=== PATIENT | female | born 1950 | race Caucasian/White ===

== ENCOUNTER 2018-07-31 13:59 | Outpatient (CLI) | payer MEDICARE, OTHER ==
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
== END 2018-07-31 14:00 | disposition home or self-care (01) ==
LOC: BICRAD 13:59
PROVIDERS: ATTEND Podiatrist
DX: M79.89 Other specified soft tissue disorders (principal); M25.572 Pain in left ankle and joints of left foot; M19.072 Primary osteoarthritis, left ankle and foot

== ENCOUNTER 2018-11-26 10:36 | Outpatient (CLI) | payer MEDICARE, OTHER ==
--- NOTE | 2018-11-26 13:19 | BD ---
DEXA BONE MINERAL DENSITY STUDY: HISTORY: Osteoporosis screening. Postmenopausal female. COMPARISON: None. FINDINGS: Lumbar Spine: BMD (g/cm2) L1 1.319 T-Score: 3.0 4.9 L2 1.784 T-Score: 6.9 9.0 L3 1.526 T-Score: 4.0 6.2 L4 1.750 T-Score: 6.3 8.5 L1-L4 1.589 T-Score: 4.9 7.1 WHO classification is normal. Femoral Neck: 0.875 T-Score: 0.2 2.1 Total Femur: 1.136 T-Score: 1.6 3.1 WHO classification is normal. Impression: Normal bone mineral density. The lumbar spine bone mineral density is spuriously elevated due to ext ensive degenerative changes. POS: HENRY
== END 2018-11-26 10:37 | disposition home or self-care (01) ==
LOC: BICMAMMO 10:36
PROVIDERS: ATTEND Internal Medicine Rheumatology
DX: M81.0 Age-related osteoporosis without current pathological fracture (principal); M47.816 Spondylosis without myelopathy or radiculopathy, lumbar region
CPT/HCPCS: 77080

== ENCOUNTER 2019-05-26 14:32 | Emergency (ER) | payer MEDICARE, OTHER ==
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
[2019-05-26] MEDS ORDERED: traMADol HCl 50 MG TAB ONE (16:06)
== END 2019-05-26 16:14 | disposition home or self-care (01) ==
LOC: ERS 14:32
DX: S16.1XXA Strain of muscle, fascia and tendon at neck level, initial encounter (principal); M54.5 Low back pain; I10 Essential (primary) hypertension; F32.9 Major depressive disorder, single episode, unspecified; Z79.899 Other long term (current) drug therapy; Z79.82 Long term (current) use of aspirin; V43.52XA Car driver injured in collision with other type car in traffic accident, initial encounter
CPT/HCPCS: 72070; 72125; 72128; 72131

== ENCOUNTER 2022-10-11 12:16 | Outpatient (CLI) | payer MEDICARE, OTHER | END 2022-10-11 12:17 | disposition home or self-care (01) | LOC: TBSIIMAG 12:16 | PROVIDERS: ATTEND Orthopaedic Surgery | DX: M48.00 Spinal stenosis, site unspecified (principal); M47.816 Spondylosis without myelopathy or radiculopathy, lumbar region; M47.814 Spondylosis without myelopathy or radiculopathy, thoracic region; M51.36 Other intervertebral disc degeneration, lumbar region; M51.37 Other intervertebral disc degeneration, lumbosacral region | CPT/HCPCS: 72148 ==

== ENCOUNTER 2023-02-20 09:26 | Outpatient (CLI) | payer MEDICARE, OTHER | END 2023-02-20 09:27 | disposition home or self-care (01) | LOC: TBSIIMAG 09:26 | PROVIDERS: ATTEND Surgery | DX: M48.04 Spinal stenosis, thoracic region (principal); M51.34 Other intervertebral disc degeneration, thoracic region; G95.89 Other specified diseases of spinal cord | CPT/HCPCS: 72146 ==

== ENCOUNTER 2023-04-03 14:41 | Outpatient (CLI) | payer MEDICARE, OTHER | END 2023-04-03 14:42 | disposition home or self-care (01) | LOC: BICCT 14:41 | PROVIDERS: ATTEND Surgery | DX: M48.02 Spinal stenosis, cervical region (principal); M47.812 Spondylosis without myelopathy or radiculopathy, cervical region; M48.03 Spinal stenosis, cervicothoracic region | CPT/HCPCS: 72125 ==

== ENCOUNTER 2023-04-07 15:30 | Inpatient (IN) | payer MEDICARE, OTHER ==
[2023-04-07 15:28] VITALS: BMI 38.2
[2023-04-11] MEDS ORDERED: Vancomycin 1 GM VIAL ONE (06:40)
[2023-04-11] MEDS ORDERED: Thrombin 5000 UNITS/5 ML VIAL ONE (06:40)
[2023-04-11] MEDS ORDERED: Famotidine/PF 20 mg/2ml Vial ONE (06:44)
[2023-04-11] MEDS ORDERED: Bacitracin Zinc Ointment 30 gm TUBE ONE (06:53)
[2023-04-11] MEDS ORDERED: Sodium Chloride 0.9% 100 ML ONE (07:21)
[2023-04-11] MEDS ORDERED: CEFAZOLIN 2 GM VIAL ONE (07:21)
[2023-04-11] MEDS ORDERED: Vasopressin 20 UNITS/ML VIAL ONE (07:25)
[2023-04-11] MEDS ORDERED: Sevoflurane 250 ML INH ANEST BOTTLE ONE (07:25)
[2023-04-11] MEDS ORDERED: Dexmedetomidine 200 MCG/2 ML VIAL ONE (07:25)
[2023-04-11] MEDS ORDERED: Phenylephrine 10 MG/ML VIAL ONE (07:25)
[2023-04-11] MEDS ORDERED: fentaNYL 50 mcg/mL 1 mL Vial ONE (07:35)
[2023-04-11] MEDS ORDERED: Midazolam HCl 2 mg/2 ml Vial ONE (07:36)
[2023-04-11] MEDS ORDERED: fentaNYL 50 mcg/mL 1 mL Vial SLOW IVP PRN (07:41)
[2023-04-11] MEDS ORDERED: Promethazine HCl 25 MG/ML VIAL IVPB PRN (07:41)
[2023-04-11] MEDS ORDERED: traMADol HCl 50 MG TAB PO PRN (07:41)
[2023-04-11] MEDS ORDERED: HYDROcodone/Acetaminophen 10/325 mg Tablet PO PRN (07:41)
[2023-04-11] MEDS ORDERED: HYDROcodone/Acetaminophen 7.5/325 mg Tablet PO PRN (07:41)
[2023-04-11] MEDS ORDERED: Diazepam 5 MG TAB PO PRN (07:44)
[2023-04-11] MEDS ORDERED: Mineral Oil ENEMA PR PRN (07:44)
[2023-04-11] MEDS ORDERED: Bisacodyl 10 MG SUPP PR PRN (07:44)
[2023-04-11] MEDS ORDERED: Phenol 118 ML BOT PO PRN (07:44)
[2023-04-11] MEDS ORDERED: Bisacodyl 5 MG TAB PO PRN (07:44)
[2023-04-11] MEDS ORDERED: Ketamine 50 MG/ML (10ML VIAL) ONE (07:45)
[2023-04-11] MEDS ORDERED: Benzocaine/Menthol 1 LOZ LOZ PO PRN (07:46)
[2023-04-11] MEDS ORDERED: Polyethylene Glycol 3350 17 GM Packet PO PRN (07:48)
[2023-04-11] MEDS ORDERED: Lidocaine 1% PF 5 ML VIAL ONE (07:56)
[2023-04-11] MEDS ORDERED: Labetalol HCl 100 MG/20 ML VIAL ONE (07:56)
[2023-04-11] MEDS ORDERED: Ondansetron PF 4 MG/2 ML Vial ONE (07:56)
[2023-04-11] MEDS ORDERED: Esmolol 100 MG/10 ML VIAL ONE (07:56)
[2023-04-11] MEDS ORDERED: ePHEDrine Sulfate 50 MG/10 ML VIAL ONE (07:56)
[2023-04-11] MEDS ORDERED: PHENYLEPHRINE-NS 100 MCG/ML 10 ML SYRINGE ONE (07:56)
[2023-04-11] MEDS ORDERED: PROPOFOL 200 MG/20 ML VIAL ONE (07:56)
[2023-04-11] MEDS ORDERED: Dexamethasone 20 MG/5 ML VIAL ONE (07:56)
[2023-04-11] MEDS ORDERED: Rocuronium Bromide 10 MG/ML (10ML VIAL) ONE (07:56)
[2023-04-11] MEDS ORDERED: MINERAL OIL/WHITE PETROLATUM 3.5 GM TUBE ONE (08:57)
[2023-04-11] MEDS ORDERED: HYDROmorphone 2 MG/ML VIAL ONE ×2 (08:58→11:33)
[2023-04-11] MEDS ORDERED: Ondansetron HCl/PF 4 MG/2 ML Vial IVP PRN (10:19)
[2023-04-11] MEDS ORDERED: HYDROmorphone 2 MG/ML VIAL SLOW IVP PRN (10:19)
[2023-04-11] MEDS ORDERED: Promethazine HCl 25 MG/ML VIAL IM PRN ×2 (10:19→14:28)
[2023-04-11] MEDS ORDERED: Meperidine HCl/PF 25 MG/ML VIAL SLOW IVP PRN (10:19)
[2023-04-11] MEDS ORDERED: Rocuronium Bromide 50 MG/5 ML VIAL ONE (11:25)
[2023-04-11] MEDS ORDERED: SUGAMMADEX SODIUM 200 MG/2 ML VIAL ONE (12:37)
[2023-04-11] MEDS ORDERED: Naloxone HCl 0.4 mg/ml Vial IV PRN (14:28)
[2023-04-11] MEDS ORDERED: Ondansetron PF 4 MG/2 ML Vial IVP PRN (14:28)
[2023-04-11] MEDS ORDERED: diphenhydrAMINE 25 MG CAP PO PRN (14:28)
[2023-04-11] MEDS ORDERED: FENTANYL 500 MCG/10 ML VIAL 2,000 MCG in Sodium Chloride 0.9% 60 ML IV PRN (14:28)
[2023-04-11] MEDS ORDERED: Zolpidem Tartrate 5 MG TAB PO PRN (14:28)
[2023-04-11] MEDS ORDERED: diphenhydrAMINE 50 MG/ML VIAL IM PRN (14:28)
[2023-04-11] MEDS ORDERED: diphenhydrAMINE 50 MG/ML VIAL IVP PRN (14:28)
[2023-04-11] MEDS ORDERED: Communication Order-Pharmacy FS SCH (14:30)
[2023-04-11] MEDS: Sodium Chloride 0.9% 1,000 ML IV SCH ×2 (16:00→21:55)
[2023-04-11] MEDS ORDERED: hydrALAZINE 20 MG/ML VIAL ONE (16:53)
[2023-04-11] MEDS: hydrALAZINE 20 MG/ML VIAL SLOW IVP PRN ×2 (16:55→22:47)
[2023-04-11] MEDS: Docusate 100 MG CAP PO SCH ×2 (18:18→20:17)
[2023-04-11] MEDS: CEFAZOLIN 2 GM in Sodium Chloride 0.9% 100 ML IVPB SCH ×2 (18:19→21:51)
[2023-04-12] MEDS: Sodium Chloride 0.9% 1,000 ML IV SCH ×2 (05:24→08:59)
[2023-04-12] MEDS: CEFAZOLIN 2 GM in Sodium Chloride 0.9% 100 ML IVPB SCH ×3 (05:25→20:46)
[2023-04-12] MEDS: Docusate 100 MG CAP PO SCH ×2 (08:59→20:33)
[2023-04-12 09:07] LABS: #Monocytes 0.9 thou/uL (0.11-0.59); %Basophils 0.3 % (0.0-1.0); %Eosinophils 0.1 % (0.0-10.0); %Monocytes 8.7 % (0.0-10.0); %Neutrophils 81.4 % (42.0-75.0); Hemoglobin 10.3 g/dL (12.0-16.0); Mean Corpuscular HGB CONC 31.4 g/dL (32.0-36.0); Mean Corpuscular Hemoglobin 28.3 pg (27.0-31.0); Mean Corpuscular Volume 90.1 fl (78.0-98.0); Mean Platelet Volume 8.7 fL (7.4-10.4); Platelet Count 259 10x3/uL (130-400); RBC Distribution Width 14.9 % (11.5-14.5); Red Blood Cell (RBC) Count 3.64 mill/uL (4.20-5.40); White Blood Cell (WBC) Count 9.8 10x3/uL (4.8-10.8)
[2023-04-12 09:28] LABS: Anion Gap 15 mmol/L (10-20); BUN (Urea Nitrogen) 17 mg/dL (9.8-20.1); Calc. Creatinine Clearance 88 mL/min (70-130); Calcium 8.8 mg/dL (7.8-10.44); Carbon Dioxide 23 mmol/L (23-31); Chloride 106 mmol/L (98-107); Estimated GFR 65; Glucose 113 mg/dL (83-110); Potassium 4.5 mmol/L (3.5-5.1); Sodium 139 mmol/L (136-145)
[2023-04-12] MEDS ORDERED: traMADol HCl 50 MG TAB PO SCH ×2 (09:45→15:00)
[2023-04-12] MEDS ORDERED: Cyclobenzaprine 10 MG TAB PO PRN (15:19)
[2023-04-12] MEDS ORDERED: HYDROcodone/Acetaminophen 5/325 mg Tablet PO PRN (15:59)
[2023-04-12] MEDS ORDERED: Diazepam 5 MG TAB PO SCH (16:00)
[2023-04-12] MEDS: Dexamethasone 4 MG TAB PO SCH ×2 (17:26→20:35)
[2023-04-12] MEDS: Ketorolac Tromethamine 30 MG/ML VIAL IVP SCH ×2 (17:27→20:35)
[2023-04-12] MEDS: cloNIDine 0.1 MG TAB PO SCH (20:33)
[2023-04-12] MEDS: Escitalopram Oxalate 20 mg Tablet PO SCH (20:34)
[2023-04-12] MEDS: Acetaminophen 325 MG TAB PO PRN (20:38)
[2023-04-12] MEDS: Diazepam 5 MG TAB PO PRN (20:41)
[2023-04-12] MEDS: traMADol HCl 50 MG TAB PO PRN (20:42)
[2023-04-12] MEDS: traZODone HCl 50 MG TAB PO PRN (20:46)
[2023-04-13] MEDS: Sodium Chloride 0.9% 1,000 ML IV SCH ×2 (01:42→12:15)
[2023-04-13] MEDS: Temazepam 15 MG CAP PO PRN (02:01)
[2023-04-13] MEDS: Ketorolac Tromethamine 30 MG/ML VIAL IVP SCH (04:59)
[2023-04-13] MEDS: Dexamethasone 4 MG TAB PO SCH ×3 (04:59→15:55)
[2023-04-13] MEDS: traMADol HCl 50 MG TAB PO PRN ×2 (05:08→21:00)
[2023-04-13] MEDS: Acetaminophen 325 MG TAB PO PRN (05:08)
[2023-04-13] MEDS: CEFAZOLIN 2 GM in Sodium Chloride 0.9% 100 ML IVPB SCH ×2 (05:08→14:47)
[2023-04-13] MEDS ORDERED: Cyclobenzaprine 10 MG TAB PO PRN (05:24)
[2023-04-13] MEDS: Levothyroxine Sodium 100 MCG TAB PO SCH (06:23)
[2023-04-13 06:56] LABS: Anion Gap 14 mmol/L (10-20); BUN (Urea Nitrogen) 16 mg/dL (9.8-20.1); Calc. Creatinine Clearance 94 mL/min (70-130); Calcium 9.1 mg/dL (7.8-10.44); Carbon Dioxide 22 mmol/L (23-31); Chloride 106 mmol/L (98-107); Estimated GFR 71; Glucose 123 mg/dL (83-110); Potassium 4.4 mmol/L (3.5-5.1); Sodium 138 mmol/L (136-145)
[2023-04-13] MEDS ORDERED: Morphine 2 MG/ML VIAL SLOW IVP PRN (07:43)
[2023-04-13] MEDS: cloNIDine 0.1 MG TAB PO SCH ×2 (08:45→20:46)
[2023-04-13] MEDS: Metoprolol Tartrate 50 MG TAB PO SCH (08:45)
[2023-04-13] MEDS: Docusate 100 MG CAP PO SCH ×2 (08:45→20:47)
[2023-04-13] MEDS: Diazepam 5 MG TAB PO PRN (11:15)
[2023-04-13] MEDS: Ketorolac Tromethamine 30 MG/ML VIAL IVP PRN (15:59)
[2023-04-13] MEDS: Escitalopram Oxalate 20 mg Tablet PO SCH (20:47)
[2023-04-13] MEDS: traZODone HCl 50 MG TAB PO PRN (22:04)
[2023-04-14] MEDS: Dexamethasone 4 MG TAB PO SCH ×3 (00:36→08:28)
[2023-04-14] MEDS: CEFAZOLIN 2 GM in Sodium Chloride 0.9% 100 ML IVPB SCH ×4 (00:36→22:14)
[2023-04-14] MEDS: Sodium Chloride 0.9% 1,000 ML IV SCH ×2 (02:43→14:46)
[2023-04-14] MEDS: Levothyroxine Sodium 100 MCG TAB PO SCH (05:01)
[2023-04-14] MEDS: Ketorolac Tromethamine 30 MG/ML VIAL IVP PRN (08:26)
[2023-04-14] MEDS: Docusate 100 MG CAP PO SCH ×2 (08:27→21:03)
[2023-04-14] MEDS: Metoprolol Tartrate 50 MG TAB PO SCH (08:27)
[2023-04-14] MEDS: cloNIDine 0.1 MG TAB PO SCH ×2 (08:28→21:03)
[2023-04-14] MEDS: traMADol HCl 50 MG TAB PO PRN ×2 (08:31→21:03)
[2023-04-14] MEDS: Diazepam 5 MG TAB PO PRN (13:56)
[2023-04-14] MEDS: Dexamethasone 1 MG TAB PO SCH ×2 (15:05→22:14)
[2023-04-14] MEDS: traZODone HCl 50 MG TAB PO PRN (21:03)
[2023-04-14] MEDS: Temazepam 15 MG CAP PO PRN (21:04)
[2023-04-14] MEDS: Escitalopram Oxalate 20 mg Tablet PO SCH (21:04)
[2023-04-15] MEDS: Dexamethasone 1 MG TAB PO SCH ×3 (04:14→16:36)
[2023-04-15] MEDS: traMADol HCl 50 MG TAB PO PRN ×2 (04:16→13:48)
[2023-04-15] MEDS: Sodium Chloride 0.9% 1,000 ML IV SCH (04:21)
[2023-04-15] MEDS: CEFAZOLIN 2 GM in Sodium Chloride 0.9% 100 ML IVPB SCH ×2 (05:35→13:14)
[2023-04-15] MEDS: Levothyroxine Sodium 100 MCG TAB PO SCH (05:37)
[2023-04-15] MEDS: Docusate 100 MG CAP PO SCH (09:05)
[2023-04-15] MEDS: Metoprolol Tartrate 50 MG TAB PO SCH (09:07)
[2023-04-15] MEDS: cloNIDine 0.1 MG TAB PO SCH (09:07)
[2023-04-15] MEDS: HYDROcodone/Acetaminophen 10/325 mg Tablet PO PRN ×2 (09:07→16:35)
[2023-04-15] MEDS: hydrALAZINE 20 MG/ML VIAL SLOW IVP PRN (13:48)
[2023-04-15 16:07] VITALS: BP 153/73; TEMP 97.7
[2023-04-16] MEDS ORDERED: Dexamethasone 1 MG TAB PO SCH (16:00)
[2023-04-18 11:29] LABS: Actual Bicarbonate (HCO3a) 22.1 mEq/L (22-28); Analyzer IN Cardio OR; Base Excess (BEa) -3.3 mEq/L (-2.0 to +3.0); CO2 Tension 41.2 mmHg (35.0-45.0); Calcium, Ionized (arterial) 1.13 mmol/L (1.12-1.30); Carboxyhemoglobin (COHb) 0.3 gm% (0.0-3.0); Hematocrit-ABG 32 % (36.0-47.0); O2 Tension (PaO2), arterial 203.4 mmHg (> 70.0); Potassium - ABG Lab 4.17 mmol/L (3.70-5.30); Puncture Site Arterial Line; pH, Arterial 7.348 (7.35-7.45)
[2023-04-18 11:53] LABS: Actual Bicarbonate (HCO3a) 20.3 mEq/L (22-28); Analyzer IN Cardio OR; Base Excess (BEa) -3.3 mEq/L (-2.0 to +3.0); CO2 Tension 31.8 mmHg (35.0-45.0); Calcium, Ionized (arterial) 1.15 mmol/L (1.12-1.30); Carboxyhemoglobin (COHb) 0.5 gm% (0.0-3.0); Hematocrit-ABG 34 % (36.0-47.0); Hemoglobin (Hb) 11.4 g/dL (12.0-16.0); O2 Tension (PaO2), arterial 376.4 mmHg (> 70.0); Puncture Site Arterial Line; pH, Arterial 7.423 (7.35-7.45)
[2023-04-18] MEDS ORDERED: Dexamethasone 1 MG TAB PO SCH (16:00)
== END 2023-04-15 16:35 | DRG 454 ==
LOC: SURG A 04-11 06:12 → EEVIPCON 04-11 15:30 → T4-B 04-11 17:41
PROVIDERS: ADMIT Surgery; ATTEND Surgery
PROC: 0RG20A0 Fusion of 2 or more Cervical Vertebral Joints with Interbody Fusion Device, Anterior Approach, Anterior Column, Open Approach (ICD-10-PCS; principal; 2023-04-11)
PROC: 0RG4071 Fusion of Cervicothoracic Vertebral Joint with Autologous Tissue Substitute, Posterior Approach, Posterior Column, Open Approach (ICD-10-PCS; 2023-04-11)
PROC: 0RB30ZZ Excision of Cervical Vertebral Disc, Open Approach (ICD-10-PCS; 2023-04-11)
PROC: 0RG2071 Fusion of 2 or more Cervical Vertebral Joints with Autologous Tissue Substitute, Posterior Approach, Posterior Column, Open Approach (ICD-10-PCS; 2023-04-11)
PROC: 00NW0ZZ Release Cervical Spinal Cord, Open Approach (ICD-10-PCS; 2023-04-11)
PROC: 01N10ZZ Release Cervical Nerve, Open Approach (ICD-10-PCS; 2023-04-11)
PROC: 4A133R1 Monitoring of Arterial Saturation, Peripheral, Percutaneous Approach (ICD-10-PCS; 2023-04-11)
PROC: 3E033XZ Introduction of Vasopressor into Peripheral Vein, Percutaneous Approach (ICD-10-PCS; 2023-04-11)
DX: M48.02 Spinal stenosis, cervical region (principal); M50.01 Cervical disc disorder with myelopathy, high cervical region; M48.062 Spinal stenosis, lumbar region with neurogenic claudication; M48.05 Spinal stenosis, thoracolumbar region; M50.30 Other cervical disc degeneration, unspecified cervical region; M54.15 Radiculopathy, thoracolumbar region; R13.10 Dysphagia, unspecified; R49.0 Dysphonia; Z79.82 Long term (current) use of aspirin; Z79.899 Other long term (current) drug therapy; Z88.8 Allergy status to other drugs, medicaments and biological substances; M50.11 Cervical disc disorder with radiculopathy, high cervical region
CPT/HCPCS: 36415; 36416; 80048; 82805; 85025; 86850; 86900; 86901; 93970; C1713; C1776; J0360; J1100; J1170; J1885; J2250; J2272; J2370; J2405; J2704; J3010; J3370; J3490; J7050; J8540; S0028

== ENCOUNTER 2023-05-23 13:05 | Outpatient (CLI) | payer MEDICARE, OTHER | END 2023-05-23 13:06 | disposition home or self-care (01) | LOC: RAD 13:05 | PROVIDERS: ATTEND Physician Assistant | DX: M54.2 Cervicalgia (principal); Z98.1 Arthrodesis status | CPT/HCPCS: 72040 ==

== ENCOUNTER 2024-04-24 09:50 | Outpatient (CLI) | payer MEDICARE, OTHER | END 2024-04-24 09:51 | disposition home or self-care (01) | LOC: BICMRI 09:50 | PROVIDERS: ATTEND Surgery | DX: M48.062 Spinal stenosis, lumbar region with neurogenic claudication (principal); M47.816 Spondylosis without myelopathy or radiculopathy, lumbar region; M41.9 Scoliosis, unspecified; M51.36 Other intervertebral disc degeneration, lumbar region; M51.37 Other intervertebral disc degeneration, lumbosacral region; M48.07 Spinal stenosis, lumbosacral region; M48.05 Spinal stenosis, thoracolumbar region | CPT/HCPCS: 72148 ==

== ENCOUNTER 2024-07-08 13:59 | Inpatient (IN) | payer MEDICARE, OTHER ==
[2024-07-08] MEDS ORDERED: traMADol HCl 50 MG TAB PO PRN (15:26)
[2024-07-08] MEDS ORDERED: Morphine 2 MG/ML VIAL SLOW IVP PRN (15:26)
[2024-07-08] MEDS ORDERED: Milk Of Magnesia 30 ML UDCUP PO PRN (15:26)
[2024-07-08] MEDS ORDERED: HYDROcodone/Acetaminophen 5/325 mg Tablet PO PRN (15:37)
[2024-07-08 15:49] LABS: #Basophils Less than 0.03 10x3/uL (0.0-0.2); %Basophils 0.1 % (0.0-1.0); %Lymphocytes 17.8 % (21.0-51.0); %Monocytes 6.8 % (0.0-10.0); %Neutrophils 73.5 % (42.0-75.0); Hematocrit 34.2 % (36.0-47.0); Hemoglobin 10.8 g/dL (12.0-16.0); Mean Corpuscular HGB CONC 31.6 g/dL (32.0-36.0); Mean Corpuscular Hemoglobin 28.6 pg (27.0-31.0); Mean Corpuscular Volume 90.5 fL (78.0-98.0); Mean Platelet Volume 8.2 fL (7.4-10.4); Platelet Count 379 10x3/uL (130-400); Red Blood Cell (RBC) Count 3.78 mill/uL (4.20-5.40)
[2024-07-08] MEDS ORDERED: traZODone HCl 50 MG TAB PO PRN (16:03)
[2024-07-08] MEDS: traMADol HCl 50 MG TAB PO PRN ×2 (16:03→16:25)
[2024-07-08 16:09] LABS: Anion Gap 14 mmol/L (10-20); BUN (Urea Nitrogen) 24 mg/dL (9.8-20.1); Calc. Creatinine Clearance 0 mL/min (70-130); Calcium 9.7 mg/dL (7.8-10.44); Carbon Dioxide 27 mmol/L (23-31); Chloride 100 mmol/L (98-107); Estimated GFR 41; Glucose 131 mg/dL (83-110); Potassium 4.2 mmol/L (3.5-5.1); Sodium 137 mmol/L (136-145)
[2024-07-08 16:22] LABS: CRP,High Sensitivity (Inhouse) 16.26 mg/dL (< or = 0.5)
[2024-07-08 16:35] VITALS: BMI 33.3
[2024-07-08] MEDS: Sodium Chloride 0.9% 1,000 ML IV SCH (18:19)
[2024-07-08] MEDS: Mirabegron ER 25 MG ER.TAB PO SCH (20:48)
[2024-07-08] MEDS: Escitalopram Oxalate 20 mg Tablet PO SCH (20:49)
[2024-07-08] MEDS: traZODone HCl 50 MG TAB PO SCH (20:49)
[2024-07-08] MEDS ORDERED: cloNIDine 0.1 MG TAB PO SCH (21:00)
[2024-07-08] MEDS: cloNIDine 0.1 MG TAB PO SCH (21:03)
[2024-07-08] MEDS: Acetaminophen/Codeine 30-300mg Tablet PO PRN (21:03)
[2024-07-08] MEDS: Acetaminophen 325 MG TAB PO PRN (21:04)
[2024-07-09] MEDS: tiZANidine HCl 4 MG TAB PO PRN (02:51)
[2024-07-09] MEDS: Levothyroxine Sodium 100 MCG TAB PO SCH (06:32)
[2024-07-09] MEDS: Cholecalciferol 1,000 UNITS (25 MCG) TAB PO SCH (08:05)
[2024-07-09] MEDS: Cyanocobalamin (Vitamin B-12) 1,000 MCG TAB PO SCH (08:05)
[2024-07-09] MEDS ORDERED: Levothyroxine Sodium 100 MCG TAB PO SCH (09:00)
[2024-07-09] MEDS ORDERED: fentaNYL PF 100 MCG/2 ML SYRINGE ONE (13:16)
[2024-07-09] MEDS ORDERED: PROPOFOL 20 ML ONE (13:16)
[2024-07-09] MEDS ORDERED: Lidocaine 1% PF 5 ML VIAL ONE (13:17)
[2024-07-09] MEDS ORDERED: Rocuronium Bromide 10 MG/ML (10ML VIAL) ONE (13:17)
[2024-07-09] MEDS ORDERED: Sevoflurane 250 ML INH ANEST BOTTLE ONE (14:15)
[2024-07-09] MEDS ORDERED: Vancomycin 1 GM VIAL ONE (14:15)
[2024-07-09] MEDS ORDERED: Midazolam HCl 2 mg/2 ml Vial ONE ×2 (14:23→14:27)
[2024-07-09] MEDS: Metoprolol Tartrate 50 MG TAB PO SCH (14:35)
[2024-07-09] MEDS ORDERED: LevoFLOXacin D5W 500 mg (100 mL) BAG ONE (14:56)
[2024-07-09] MEDS ORDERED: Clindamycin/D5W 900 mg/50 ml Premix Bag ONE (14:56)
[2024-07-09] MEDS ORDERED: Dexamethasone 20 MG/5 ML VIAL ONE (15:13)
[2024-07-09] MEDS ORDERED: Ondansetron PF 4 MG/2 ML Vial ONE (15:13)
[2024-07-09] MEDS ORDERED: hydrALAZINE 20 MG/ML VIAL ONE ×2 (15:49→17:47)
[2024-07-09] MEDS ORDERED: fentaNYL 50 mcg/mL 1 mL Vial ONE ×5 (16:22→17:45)
[2024-07-09] MEDS ORDERED: Glycopyrrolate 0.2 MG/ML 5 ML SYRINGE ONE (16:26)
[2024-07-09] MEDS ORDERED: NEOSTIGMINE 3 MG/3 ML SYRINGE ONE (16:26)
[2024-07-09] MEDS ORDERED: Morphine Sulfate 2 MG/ML SYRINGE SLOW IVP PRN (16:38)
[2024-07-09] MEDS ORDERED: PACU-Morphine 4MG/ML VIAL SLOW IVP PRN (16:38)
[2024-07-09] MEDS ORDERED: HYDROmorphone 2 MG/ML VIAL SLOW IVP PRN (16:38)
[2024-07-09] MEDS ORDERED: Ondansetron HCl/PF 4 MG/2 ML Vial IVP PRN (16:38)
[2024-07-09] MEDS ORDERED: Promethazine HCl 25 MG/ML VIAL IM PRN (16:38)
[2024-07-09] MEDS ORDERED: HYDROmorphone 0.5 MG/0.5 ML SYRINGE ONE ×4 (17:07→17:46)
[2024-07-09] MEDS ORDERED: Clindamycin/D5W 900 MG in Premix 1 BAG IVPB SCH (18:00)
[2024-07-09] MEDS: HYDROcodone/Acetaminophen 5/325 mg Tablet PO PRN (22:15)
[2024-07-09] MEDS: Temazepam 15 MG CAP PO SCH (22:15)
[2024-07-09] MEDS: Clindamycin/D5W 900 MG in Premix 1 BAG IVPB SCH (23:59)
[2024-07-10] MEDS: LevoFLOXacin 750 mg/D5W 750 MG in Premix 1 BAG IVPB SCH (18:05)
[2024-07-10] MEDS: Ubidecarenone [Co Q-10] 10 MG Capsule PO SCH (23:10)
[2024-07-11 08:40] LABS: #Basophils Less than 0.03 10x3/uL (0.0-0.2); %Basophils 0.2 % (0.0-1.0); %Eosinophils 0.9 % (0.0-10.0); %Monocytes 7.3 % (0.0-10.0); %Neutrophils 63.8 % (42.0-75.0); Mean Corpuscular Hemoglobin 28.2 pg (27.0-31.0); Mean Corpuscular Volume 90.9 fL (78.0-98.0); Mean Platelet Volume 8.2 fL (7.4-10.4); Platelet Count 308 10x3/uL (130-400); Red Blood Cell (RBC) Count 3.19 mill/uL (4.20-5.40)
[2024-07-11 08:55] LABS: Anion Gap 11 mmol/L (10-20); BUN (Urea Nitrogen) 20 mg/dL (9.8-20.1); Calc. Creatinine Clearance 59 mL/min (70-130); Calcium 8.9 mg/dL (7.8-10.44); Carbon Dioxide 29 mmol/L (23-31); Chloride 102 mmol/L (98-107); Estimated GFR 48; Glucose 112 mg/dL (83-110); Potassium 4.1 mmol/L (3.5-5.1); Sodium 138 mmol/L (136-145)
[2024-07-12] MEDS ORDERED: Dexamethasone 4 mg/ml Vial SLOW IVP SCH (07:45)
[2024-07-12] MEDS: Dexamethasone 10 MG/ML VIAL SLOW IVP SCH (08:23)
[2024-07-12] MEDS: Gabapentin 300 MG CAP PO SCH (08:25)
[2024-07-12 19:59] VITALS: BP 131/73; TEMP 98.5
[2024-07-13] MEDS ORDERED: LevoFLOXacin 750 mg/D5W 750 MG in Premix 1 BAG IVPB SCH (17:00)
== END 2024-07-13 01:20 | DRG 909 ==
LOC: SURG B 13:59
PROVIDERS: ADMIT Surgery; ATTEND Surgery
PROC: 0WQL0ZZ Repair Lower Back, Open Approach (ICD-10-PCS; principal; 2024-07-09)
DX: T81.31XA Disruption of external operation (surgical) wound, not elsewhere classified, initial encounter (principal); I10 Essential (primary) hypertension; E03.9 Hypothyroidism, unspecified; F41.9 Anxiety disorder, unspecified; F32.A Depression, unspecified; E66.01 Morbid (severe) obesity due to excess calories; Z68.33 Body mass index [BMI] 33.0-33.9, adult; Z88.1 Allergy status to other antibiotic agents; Z88.8 Allergy status to other drugs, medicaments and biological substances; Z90.710 Acquired absence of both cervix and uterus; Z98.890 Other specified postprocedural states
CPT/HCPCS: 36415; 80048; 85025; 86141; J0360; J1100; J1170; J1956; J2250; J2405; J2704; J3010; J3370; J3490; J7030